=== PATIENT | female | born 1980 | race Caucasian/White ===

== ENCOUNTER 2023-01-12 00:57 | Day surgery (SDC) | payer BC, SELFPAY ==
[2023-01-02 14:08] VITALS: BMI 23.3
--- NOTE | 2023-01-02 14:12 | PC.NURSE ---
Report to the Outpatient Waiting Room, entrance under the green pavilion located off [facility], at time 1230 on date 01/12/23. Planned Procedure Time: 1430. Time changes happen often and if your time is changed the preop area will call you the afternoon before. - You and your visitor will be asked to self-screen and do not enter if you have any COVID symptoms. - A mask is optional within the hospital at this time. Patients may have clear liquids (water, carbonated beverages, clear teas, apple juice) until 3 hours prior to surgery with a maximum of 20 ounces. - No food from midnight until time of surgery Take the following medications with a SIP of water the morning of surgery: NONE DO NOT STOP ANY OF YOUR OTHER PRESCRIPTION MEDICATIONS PRIOR TO SURGERY EXCEPT THE FOLLOWING Medications to discontinue per physician: N/A Date to take last dose: N/A Please no make-up, nail bengali, hairspray, perfume, deodorant, or body powder the day of surgery. No jewelry (including any body piercings) or valuables the day of surgery, leave them at home. Please take a shower or bath the night before, or the morning of, surgery with an antibacterial soap. Wear comfortable, loose fitting clothing. - Jewelry must be removed prior to entering the operating room. Rings and piercings that are not removed may be cut off. - The hospital will not accept responsibility for valuables. - Please leave all valuables, including medications, at home the day of surgery. If you are going home after surgery, a licensed laborer driver must drive you home. - NO public transportation without another adult if you receive anesthesia. - We recommend that an adult stay with you for 24 hours following discharge. - We also recommend that you do not drive, make important decision, drink alcoholic beverages, or take any drugs that were not prescribed by your health care provider for at least 24 hours after your discharge time. Follow any additional instructions given to you from your surgeon. If you or anyone in your household have experienced Covid symptoms in the past week, please notify your surgeon or the nurse liaison at the phone number below for possible testing. Telephone instructions given to PT - PRUDENCIO JOHNSON and asked if any additional questions and then verbalized understanding. Patient advised to call surgeon office or pre surgery nurse liaison [phone] if any additional questions.
[2023-01-12 07:33] VITALS: BP 108/74; PULSE 63; RESP 16; TEMP 36.9; O2SAT 100
--- NOTE | 2023-01-12 07:38 | WPDHPUPDATE1 ---
History and Physical Update Update Date/Time: 01/12/23 07:38 History and Physical has been reviewed, including an updated exam of the patient. There are NO changes in the patient's condition. Risks, benefits, and alternatives have been discussed and questions answered. Patient agrees to proceed with procedure.
--- NOTE | 2023-01-12 07:38 | PM.HPGS ---
History of Present Illness History of Present Illness Consent: Risks, benefits, and alternatives have been discussed and questions answered. Patient agrees to proceed with procedure. Chief complaint: Menorrhagia Narrative: Meggan Hope is a 42 year old female With a prolonged bleeding episode lasting over a month. It was recommended to undergo D&C hysteroscopy. Pelvic ultrasound showed a possible fibroid but was otherwise normal. Risks of infection, bleeding, perforation, possible pathology were reviewed. Patient voices understanding and agrees to proceed. Review of Systems Review of Systems: not repeated day of surgery; patient states no changes in status [facility] Past Medical History Medical History (Updated 01/12/23 @ 07:40 by Yeni Andrews MD) Migraine (normal spontaneous vaginal delivery) Social History Social History Smoking status: Never smoker Alcohol intake: never Substance use: current Substance use type: marijuana Living arrangements: with family Additional living arrangements comments: DAUGHTER Spiritual care concerns: No Meds Home Medications and Allergies Home Medications Medication Instructions Recorded Confirmed Type spironolactone 100 mg tablet 100 mg PO BID ACNE 01/02/23 01/02/23 History Allergies Allergy/AdvReac Type Severity Reaction Status Date / Time Sulfa (Sulfonamide Allergy Mild swelling, Verified 01/02/23 14:07 Antibiotics) rash neck and face Exam Const: General: healthy appearing and alert Orientation/consciousness: patient oriented x3 Resp: Effort & Inspection: normal respiratory effort GI: GI Palp: Yes Soft to palpation, No Tenderness to palpation present (GI) and No Palpable mass present : External Female Exam: normal external appearance Speculum Exam - Vagina: normal appearance of the vagina and normal vaginal discharge Speculum Exam - Cervix: normal appearance of the cervix Bimanual exam- vagina & uterus: uterine size normal and consistency normal Bimanual Exam- Adnexa, other: normal adnexae and No adnexal tenderness Neuro: General: patient oriented x3 Assessment and Plan Assessment and plan (1) Menorrhagia: Code(s): N92.0 - Excessive and frequent menstruation with regular cycle Status: Acute Assessment and Plan: plan to proceed with D&C hysteroscopy
[2023-01-12] MEDS: LACTATED RINGERS 1,000 ML 30 ML IV CONT (07:49)
[2023-01-12] MEDS: ACETAMINOPHEN 500 MG TABLET 1000 MG PO (07:50)
--- NOTE | 2023-01-12 08:20 | P.PNAN_ITS ---
Anes - Initial Pre Proc Eval Procedure: Operation Date: 01/12/23 09:30 Proposed Procedures p Hysteroscopy Dilation and Curettage - Yeni Andrews MD Date/Time: 01/12/23 08:20 Surgeon: Yeni Andrews MD Pre Op Diagnosis: Menorrhagia Patient Data Age: 42 Gender: F Height: 1.65 m Weight: 61.35 kg Last Vital Signs Temp 36.9 C 01/12/23 07:33 Pulse 63 01/12/23 07:33 Resp 16 01/12/23 07:33 BP 108/74 01/12/23 07:33 Pulse Ox 100 01/12/23 07:33 O2 Del Method Room Air 01/12/23 07:33 Allergies Allergy/AdvReac Type Severity Reaction Status Date / Time Sulfa (Sulfonamide Allergy Mild swelling, Verified 01/12/23 07:56 Antibiotics) rash neck and face Home Medications Medication Instructions Recorded Confirmed Type spironolactone 100 mg tablet 100 mg PO BID ACNE 01/02/23 01/12/23 History Patient hx anesthesia problems: none Family hx anesthesia problems: none Results Review: All pre-operative results and documents have been reviewed as part of the pre- operative evaluation. [facility] Past Medical History Medical History Migraine (normal spontaneous vaginal delivery) Social History Social History Smoking status: Never smoker Alcohol intake: never Substance use: current Substance use type: marijuana Living arrangements: with family Additional living arrangements comments: DAUGHTER Spiritual care concerns: No Anes - Eval Final PreProcedure Day of Procedure 01/12/23 08:20 Patient weight: normal Heart: regular rate and rhythm Lungs: clear to auscultation Airway: Mallampati scale class 1 Neurological: alert and oriented Last oral intake: >/= 8 hours ASA classification: II Emergent: yes Anesthetic plan: proceed Anesthesia type and monitoring: general GIVS and standard monitoring Results Review: All pre-operative results and documents have been reviewed as part of the pre- operative evaluation. Informed Consent: The patient's anesthetic plan and its attendant risks and benefits were discussed with the patient/family/POA. Questions were solicited and answers provided to the satisfaction of the patient/family/POA.
[2023-01-12 10:25] VITALS: BP 97/56; PULSE 64; RESP 16; O2SAT 100
[2023-01-12 10:55] VITALS: BP 95/64; PULSE 57; RESP 16
--- NOTE | 2023-01-12 11:12 | P.OP_ITS ---
Procedure Note - Detailed Date of Procedure 01/12/23 Pre-op Diagnosis Menorrhagia Post-op Diagnosis Same Procedure Performed D&C hysteroscopy Surgeon Yeni Andrews MD Anesthesia MAC Findings uterus sounds to 8cm and appears grossly normal Description of Procedure the patient is taken to the operating room and placed under anesthesia in the dorsal lithotomy position. She was prepped and draped in the usual sterile fashion. [place] speculum was placed in the vagina and the cervix grasped on the anterior lip with a tenaculum. The uterus is sounded to 8cm. The diagnostic hysteroscope was placed with the above-stated findings. The hysteroscope was then removed and the sharp curette used to curette the endometrium until a good uterine cry was noted in all areas. Minimal material was obtained consistent with the visual appearance. Instruments were removed. Sponge, needle, and instrument counts are correct per the OR staff. Patient was awakened from anesthesia and taken to recovery in stable condition. Estimated Blood Loss 5 Drains No Packing No Pathology Yes ( Endometrial curettings) Complications No immediate complications Condition Stable Disposition PACU
[2023-01-12 11:25] VITALS: BP 101/71; PULSE 60; RESP 16
== END 2023-01-12 11:30 | disposition home or self-care (01) ==
PROVIDERS: PCP Family Medicine; Visit Provider Obstetrics & Gynecology Gynecology
PROC: 0U5B8ZZ Destruction of Endometrium, Via Natural or Artificial Opening Endoscopic (ICD-10-PCS; CPT 58563; principal; 2023-01-12 09:30)
DX: N92.0 Excessive and frequent menstruation with regular cycle (principal); F12.90 Cannabis use, unspecified, uncomplicated
CPT/HCPCS: 58558; 88305; A9270; J2250; J2405; J2704; J3010; J7120